=== PATIENT | male | born 1990 | race African-American/Black ===

== ENCOUNTER 2017-04-30 22:06 | Emergency (ER) | payer OTHER ==
[~2017-04-30] VITALS: Ht 190.5 cm; Wt 137.0 kg
[~2017-04-30 22:06] MED LIST: BACTRIM DS TAB1 EACH PO; IBUPROFEN 600600 M1 PO; KEFLEX500 MG PO; NOHOMEMEDICATIONS; PROTONIX40 MG PO; TRAMADOL 50 MG50 MG PO; VALIUM5 MG PO; XANAX 1 MG TABLE1 MG PO
[2017-04-30 22:40] LABS: URINE BILIRUBIN NEGATIVE (Negative); URINE BLOOD 1+ (Negative); URINE CLARITY SL CLOUDY; URINE COLOR YELLOW; URINE GLUCOSE-RANDOM* NEGATIVE (Negative); URINE KETONES NEGATIVE (Negative); URINE LEUKOCYTES 1+ (Negative); URINE NITRITE NEGATIVE (Negative); URINE PROTEIN (DIPSTICK) TRACE (Negative); URINE SPECIFIC GRAVITY 1.025 (1.005-1.035)
[2017-04-30 23:12] LABS: MUCUS 0-3 Light strn/LPF (None Seen); SQUAMOUS 0-3 Few /LPF (0-3)
[2017-04-30 23:13] LABS: URINE RBC 3-10 Few /HPF (0-2)
[2017-04-30 23:14] LABS: CASTS None Seen /LPF (None Seen); CRYSTALS None Seen /LPF (None Seen); URINE WBC >25 Many /HPF (0-5)
[2017-11-27] MEDS ORDERED: DOXYCYCLINE 10100 MG PO (01:01)
== END 2017-04-30 23:58 | disposition home or self-care (01) ==
LOC: ER 22:06
PROVIDERS: Emergency Medicine; Nurse Practitioner
DX: N34.2 Other urethritis (principal); J45.909 Unspecified asthma, uncomplicated; F17.210 Nicotine dependence, cigarettes, uncomplicated

== ENCOUNTER 2017-06-03 20:00 | Emergency (ER) | payer OTHER ==
[~2017-06-03] VITALS: Ht 190.5 cm; Wt 136.1 kg
[2017-06-03 20:23] LABS: URINE BILIRUBIN NEGATIVE (Negative); URINE BLOOD NEGATIVE (Negative); URINE CLARITY SL CLOUDY; URINE COLOR YELLOW; URINE GLUCOSE-RANDOM* NEGATIVE (Negative); URINE KETONES NEGATIVE (Negative); URINE LEUKOCYTES 2+ (Negative); URINE NITRITE NEGATIVE (Negative); URINE PROTEIN (DIPSTICK) NEGATIVE (Negative); URINE SPECIFIC GRAVITY >= 1.030 (1.005-1.035)
[2017-06-03 20:31] LABS: CASTS None Seen /LPF (None Seen); CRYSTALS None Seen /LPF (None Seen); SQUAMOUS 0-3 Few /LPF (0-3); URINE RBC None Seen /HPF (0-2); URINE WBC >25 Many /HPF (0-5)
[2017-06-03 20:32] LABS: BACTERIA None Seen /HPF (None Seen)
[2017-11-27] MEDS ORDERED: DOXYCYCLINE 10100 MG PO (01:01)
== END 2017-06-03 21:14 | disposition home or self-care (01) ==
LOC: ER 20:00
PROVIDERS: Physician Assistant
DX: N34.2 Other urethritis (principal); J45.909 Unspecified asthma, uncomplicated; F17.210 Nicotine dependence, cigarettes, uncomplicated

== ENCOUNTER 2018-12-27 21:40 | Emergency (ER) | payer OTHER ==
[~2018-12-27] VITALS: Ht 190.5 cm; Wt 131.5 kg
[~2018-12-27 21:40] MED LIST changes: +DOXYCYCLINE 10100 MG PO
[2018-12-27 22:05] LABS: URINE BILIRUBIN NEGATIVE (Negative); URINE BLOOD TRACE (Negative); URINE CLARITY CLEAR; URINE COLOR YELLOW; URINE GLUCOSE-RANDOM* NEGATIVE (Negative); URINE KETONES NEGATIVE (Negative); URINE LEUKOCYTES-REFLEX NEGATIVE (Negative); URINE NITRITE-REFLEX NEGATIVE (Negative); URINE PROTEIN (DIPSTICK) NEGATIVE (Negative)
[2018-12-27] MEDS ORDERED: PREDNISONE 20 M20 MG PO (22:58)
[2018-12-27] MEDS ORDERED: TESSALON PERLE100 MG PO ×2 (22:58→22:59)
[2018-12-27] MEDS ORDERED: NAPROSYN500 MG PO (22:58)
[2018-12-27 23:05] VITALS: BP 158/87
== END 2018-12-27 23:26 | disposition home or self-care (01) ==
LOC: ER 21:40
PROVIDERS: Physician Assistant
DX: S62.102A Fracture of unspecified carpal bone, left wrist, initial encounter for closed fracture (principal); J45.909 Unspecified asthma, uncomplicated; F17.210 Nicotine dependence, cigarettes, uncomplicated; Z20.2 Contact with and (suspected) exposure to infections with a predominantly sexual mode of transmission; W22.8XXA Striking against or struck by other objects, initial encounter; Y93.89 Activity, other specified; Y92.89 Other specified places as the place of occurrence of the external cause; Y99.8 Other external cause status

== ENCOUNTER 2019-11-28 01:36 | Emergency (ER) | payer OTHER ==
[~2019-11-28] VITALS: Ht 188 cm; Wt 131.5 kg
[~2019-11-28 01:36] MED LIST changes: +NAPROSYN500 MG PO; +PREDNISONE 20 M20 MG PO; +TESSALON PERLE100 MG PO
[2019-11-28 01:43] VITALS: BP 169/78
[2019-11-28] MEDS ORDERED: MEDROLDOSEPACK PO (02:48)
== END 2019-11-28 02:57 | disposition home or self-care (01) ==
LOC: ER 01:36
DX: L30.9 Dermatitis, unspecified (principal); J45.909 Unspecified asthma, uncomplicated; F17.210 Nicotine dependence, cigarettes, uncomplicated

== ENCOUNTER 2020-01-22 09:00 | Emergency (ER) | payer OTHER ==
[~2020-01-22] VITALS: Ht 185.4 cm; Wt 141.1 kg
[~2020-01-22 09:00] MED LIST changes: +MEDROLDOSEPACK PO
[2020-01-22 09:08] VITALS: BP 152/92
[2020-01-22] MEDS ORDERED: DOXYCYCLINE 10100 MG PO (10:21)
[2020-01-22] MEDS ORDERED: PERCOCET 5-3251 EACH PO (10:21)
== END 2020-01-22 10:34 | disposition home or self-care (01) ==
LOC: ER 09:00
DX: L02.212 Cutaneous abscess of back [any part, except buttock and flank] (principal); J45.909 Unspecified asthma, uncomplicated; F17.210 Nicotine dependence, cigarettes, uncomplicated

== ENCOUNTER 2020-07-09 21:45 | Emergency (ER) | payer OTHER ==
[~2020-07-09] VITALS: Ht 190.5 cm; Wt 131.5 kg
[~2020-07-09 21:45] MED LIST changes: +PERCOCET 5-3251 EACH PO
[2020-07-09] MEDS ORDERED: LIDODERM1 EACH TOP (23:04)
[2020-07-09 23:12] VITALS: BP 156/95
== END 2020-07-10 00:06 | disposition home or self-care (01) ==
LOC: ER 21:45
DX: M79.10 Myalgia, unspecified site (principal); J45.909 Unspecified asthma, uncomplicated; F17.210 Nicotine dependence, cigarettes, uncomplicated

== ENCOUNTER 2020-07-18 21:20 | Emergency (ER) | payer OTHER ==
[~2020-07-18] VITALS: Ht 177.8 cm; Wt 99.8 kg
[~2020-07-18 21:20] MED LIST changes: +LIDODERM1 EACH TOP
[2020-07-18] MEDS ORDERED: HYDROCODON-ACE1 EAC7 PO (22:14)
[2020-07-18] MEDS ORDERED: DOXYCYCLINE 10100 MG PO (22:14)
[2020-07-18 23:27] VITALS: BP 160/100
== END 2020-07-18 22:35 | disposition home or self-care (01) ==
LOC: ER 21:20
DX: L02.211 Cutaneous abscess of abdominal wall (principal); J45.909 Unspecified asthma, uncomplicated; F17.210 Nicotine dependence, cigarettes, uncomplicated; Z79.899 Other long term (current) drug therapy

== ENCOUNTER 2020-10-27 14:53 | Emergency (ER) | payer OTHER ==
[~2020-10-27] VITALS: Ht 190.5 cm; Wt 133.8 kg
[~2020-10-27 14:53] MED LIST changes: +HYDROCODON-ACE1 EAC7 PO
[2020-10-27] MEDS ORDERED: PREDNISONE 10 M10 M1 PO (16:05)
[2020-10-27] MEDS ORDERED: HYDROXYZINE HCL25 M2 PO (16:05)
[2020-10-27 16:31] VITALS: BP 154/99
== END 2020-10-27 16:38 | disposition home or self-care (01) ==
LOC: ER 14:53
DX: T78.49XA Other allergy, initial encounter (principal); J45.909 Unspecified asthma, uncomplicated; F17.210 Nicotine dependence, cigarettes, uncomplicated; X58.XXXA Exposure to other specified factors, initial encounter

== ENCOUNTER 2020-11-09 00:05 | Emergency (ER) | payer OTHER ==
[~2020-11-09] VITALS: Ht 190.5 cm; Wt 133.8 kg
[~2020-11-09 00:05] MED LIST changes: +HYDROXYZINE HCL25 M2 PO; +PREDNISONE 10 M10 M1 PO
[2020-11-09 00:08] VITALS: BP 138/86
[2020-11-09] MEDS ORDERED: BACTRIM DS TAB1 EACH PO (02:32)
== END 2020-11-09 02:43 | disposition home or self-care (01) ==
LOC: ER 00:05
DX: L02.413 Cutaneous abscess of right upper limb (principal); J45.909 Unspecified asthma, uncomplicated; F17.210 Nicotine dependence, cigarettes, uncomplicated

== ENCOUNTER 2020-11-18 00:50 | Emergency (ER) | payer OTHER ==
[~2020-11-18] VITALS: Ht 190.5 cm; Wt 131.5 kg
[2020-11-18] MEDS ORDERED: PREDNISONE 10 M10 M1 PO (01:47)
[2020-11-18] MEDS ORDERED: HYDROXYZINE HCL10 M2 PO (01:47)
[2020-11-18 02:15] VITALS: BP 142/78
== END 2020-11-18 02:15 | disposition home or self-care (01) ==
LOC: ER 00:50
DX: T78.40XA Allergy, unspecified, initial encounter (principal); F17.210 Nicotine dependence, cigarettes, uncomplicated; Z88.1 Allergy status to other antibiotic agents; X58.XXXA Exposure to other specified factors, initial encounter

== ENCOUNTER 2021-02-12 11:01 | Emergency (ER) | payer OTHER ==
[~2021-02-12] VITALS: Ht 190.5 cm; Wt 129.3 kg
[~2021-02-12 11:01] MED LIST changes: +HYDROXYZINE HCL10 M2 PO
[2021-02-12 11:07] VITALS: BP 188/101
[2021-02-12] MEDS ORDERED: CEPHALEXIN500 MG PO (11:18)
[2021-02-12] MEDS ORDERED: MEDROLDOSEPACK PO (11:18)
== END 2021-02-12 11:07 | disposition home or self-care (01) ==
LOC: ER 11:01
DX: L85.3 Xerosis cutis (principal); L29.9 Pruritus, unspecified; J45.909 Unspecified asthma, uncomplicated; F17.210 Nicotine dependence, cigarettes, uncomplicated; Z88.2 Allergy status to sulfonamides; Z88.8 Allergy status to other drugs, medicaments and biological substances